=== PATIENT | female | born 1965 | race Caucasian/White ===

== ENCOUNTER 2016-10-24 17:28 | Emergency (ER) | payer SELFPAY ==
[~2016-10-24] VITALS: Ht 177.8 cm; Wt 86.2 kg
[~2016-10-24 17:28] MED LIST: ALBU0.632 IH; ALBU17AE3 IH; AZIT250T PO; CEPH500C PO; CLIN300C3 PO; HYDR-3714 PO; HYDR1TAB66 PO; LACT1CAP45 PO; LEVO500T69 PO; PRD20T PO
--- OUTSIDE RECORDS SUMMARY | 2016-10-24 17:34 | XMS REPORT | Continuity of Care Document ---
Author Author [facility] Organization [facility] Address Unknown Phone Unavailable Allergies Active Description Code Type Severity Reaction Onset Reported/Identified Relationship to Patient Clinical Status Yes amoxicillin [id number] Drug Allergy Unknown N/A 11/16/2010 Medications Problems Date Dx Coded Attending Type Code Diagnosis Diagnosed By 11/17/2010 Ot 276.1 HYPOSMOLALITY 11/17/2010 Ot 276.8 HYPOPOTASSEMIA 11/17/2010 Ot 521.00 UNSPEC DENTAL CARIES 11/17/2010 Ot 522.5 PERIAPICAL ABSCESS 11/09/2013 MARISOL BLANCAS APRN Ot 490 BRONCHITIS NOS 11/09/2013 MARISOL BLANCAS APRN Ot 786.2 COUGH 08/05/2014 MARISOL BALNCAS APRN Ot 521.00 UNSPEC DENTAL CARIES 08/05/2014 MARISOL BLANCAS APRN Ot 525.9 DENTAL DISORDER NOS 03/23/2016 MARISOL BLANCAS APRN Ot K02.9 DENTAL CARIES, UNSPECIFIED 03/23/2016 MARISOL BLANCAS APRN Ot K08.8 OTHER SPECIFIED DISORDERS OF TEETH AND S 04/21/2016 MAIRSOL BLANCAS APRN Ot F17.210 NICOTINE DEPENDENCE, CIGARETTES, UNCOMPL 04/21/2016 MARISOL BLANCAS APRN Ot R06.02 SHORTNESS OF BREATH 04/21/2016 MARISOL BLANCAS APRN Ot R07.81 PLEURODYNIA 04/21/2016 MARISOL BLANCAS APRN Ot R10.13 EPIGASTRIC PAIN Procedures Results Test Result Range Complete blood count (CBC) with automated white blood cell (WBC) differential - 04/19/16 14:22 Blood leukocytes automated count (number/volume) 6.8 10*3/ uL 4.3-11.0 Blood erythrocytes automated count (number/volume) 4.65 10*6 /uL 4.35-5.85 Venous blood hemoglobin measurement (mass/volume) 14.3 g/dL 11.5-16.0 Blood hematocrit (volume fraction) 41 % 35-52 Automated erythrocyte mean corpuscular volume 87 [foz_us] 80-99 Automated erythrocyte mean corpuscular hemoglobin (mass per erythrocyte) 31 pg 25-34 Automated erythrocyte mean corpuscular hemoglobin concentration measurement ( mass/volume) 35 g/dL 32-36 Automated erythrocyte distribution width ratio 14.9 % 10.0-14.5 Automated blood platelet count (count/volume) 210 10*3/uL 130-400 Automated blood platelet mean volume measurement 11.9 [foz_ us] 7.4-10.4 Automated blood neutrophils/100 leukocytes 68 % 42-75 Automated blood lymphocytes/100 leukocytes 20 % 12-44 Blood monocytes/100 leukocytes 10 % 0-12 Automated blood eosinophils/100 leukocytes 2 % 0-10 Automated blood basophils/100 leukocytes 2 % 0-10 Blood neutrophils automated count (number/volume) 4.6 10*3 1.8-7.8 Blood lymphocytes automated count (number/volume) 1.3 10*3 1.0-4.0 Blood monocytes automated count (number/volume) 0.7 10*3 0.0-1.0 Automated eosinophil count 0.1 10*3/uL 0.0-0.3 Automated blood basophil count (count/volume) 0.1 10*3/uL 0.0-0.1 Comprehensive metabolic panel - 04/19/16 14:22 Serum or plasma sodium measurement (moles/volume) 139 mmol/ L 135-145 Serum or plasma potassium measurement (moles/volume) 4.0 mmol/L 3.6-5.0 Serum or plasma chloride measurement (moles/volume) 109 mmol /L 98-107 Carbon dioxide 22 mmol/L 21-32 Serum or plasma anion gap determination (moles/volume) 8 mmol/L 5-14 Serum or plasma urea nitrogen measurement (mass/volume) 14 mg/dL 7-18 Serum or plasma creatinine measurement (mass/volume) 0.81 mg /dL 0.60-1.30 Serum or plasma urea nitrogen/creatinine mass ratio 17 NRG Serum or plasma creatinine measurement with calculation of estimated glomerular filtration rate > NRG Serum or plasma glucose measurement (mass/volume) 100 mg/dL 70-105 Serum or plasma calcium measurement (mass/volume) 8.9 mg/dL 8.5-10.1 Serum or plasma total bilirubin measurement (mass/volume) 0.6 mg/dL 0.1-1.0 Serum or plasma alkaline phosphatase measurement (enzymatic activity/volume) 65 U/L 40-136 Serum or plasma aspartate aminotransferase measurement (enzymatic activity/ volume) 17 U/L 5-34 Serum or plasma alanine aminotransferase measurement (enzymatic activity/volume ) 15 U/L 0-55 Serum or plasma protein measurement (mass/volume) 7.4 g/dL 6.4-8.2 Serum or plasma albumin measurement (mass/volume) 4.2 g/dL 3.2-4.5 Serum or plasma creatine kinase MB measurement (enzymatic activity/volume) - 14:22 Serum or plasma creatine kinase MB measurement (enzymatic activity/volume) 2.5 ng/mL <6.6 Serum or plasma troponin i.cardiac measurement (mass/volume) - 04/19/16 14:22 Serum or plasma troponin i.cardiac measurement (mass/volume) < ng/mL <0.30 Serum or plasma lithium measurement (moles/volume) - 04/19/16 14:22 BNP level 97.1 pg/mL <100.0 Lipase - 04/19/16 14:22 Lipase 22 U/L 8-78 Encounters ACCT No. Visit Date/Time Discharge Status Pt. Type Provider Facility Loc./Unit Complaint [id number] 04/19/2016 14:13:00 2015 16:17:00 DIS Outpatient MARISOL BLANCAS APRN [facility] ER SOA/CHEST PAIN [id number] 03/21/2016 16:23:00 2015 17:38:00 DIS Outpatient MARISOL BLANCAS APRN [facility] ER DENTAL PAIN [id number] 08/05/2014 17:43:00 2013 18:42:00 DIS Emergency MARISOL BLANCAS APRN [facility] ER LEFT DENTAL PAIN [id number] 11/09/2013 10:18:00 2013 11:57:00 DIS Emergency MARISOL BLANCAS APRN [facility] ER CONGESTION SOA [id number] 03/21/2016 16:23:00 Document Registration [id number] 11/16/2010 21:55:00 Document Registration
[2016-10-24] MEDS ORDERED: NS IV 500 ML 500 ML IV ONE (18:12)
[2016-10-24 18:19] LABS: BILIRUBIN,URINE NEGATIVE (NEGATIVE); KETONES,URINE NEGATIVE (NEGATIVE); LEUKOCYTE ESTERASE ,URINE 2+ (NEGATIVE); NITRITE,URINE NEGATIVE (NEGATIVE); PH,URINE 6 (5-9); PROTEIN,URINE NEGATIVE (NEGATIVE); UROBILINOGEN,URINE NORMAL (NORMAL)
--- NOTE | 2016-10-24 18:20 | ED Chest Pain ---
General Chief Complaint: Chest Pain Stated Complaint: BACK PAIN/PAINFUL BREATHING/SOB Nursing Triage Note: AMBULATED TO ROOM 06 WITH COMPLAINTS OF ABD PAIN TODAY THAT SUBSIDED WHEN SHE HAD A BM. NOW COMPLAINS OF CHEST AND BACK PAIN. ALSO COMPLAINS OF PAIN LEFT SIDE OF FACE. Nursing Sepsis Screen: No Definite Risk Source: patient Exam Limitations: no limitations History of Present Illness Time seen by provider: 18:03 Initial Comments here with a variety of vague complaints. States that she's had months of upper abdominal pain that is mostly on the left side and gets better with bowel movements. She's also had a couple weeks of pain that goes from her back to her chest from the area of the mid back to the area near the xiphoid. It is moderate and intermittent and is associated with shortness of breath. That has also been associated with some other variety of complaints of pain including her head and neck. She states that she gets migraine headaches when she gets these pains. denies nausea or vomiting. Denies dysuria or diarrhea. Denies fever or chills. Timing/Duration: getting worse, changing over time, intermittent, other (2 weeks) Severity/Quality: moderate, ingestion, pressure Location: central, epigastric Radiation: neck, back Prior CP/Workup: no prior chest pain ASA po TOOL DESIGN ENGINEER: No NTG SL TOOL DESIGN ENGINEER: No Associated Symptoms: abdominal pain back painNo nausea/vomiting, No rash, shortness of breathNo weakness Allergies and Home Medications Allergies Coded Allergies: Amoxicillin (Unverified Allergy, 11/16/10) Home Medications No Active Prescriptions or Reported Meds Review of Systems Constitutional: see HPINo chills, No fever, malaise EENTM: Nose CongestionNo Throat Pain Respiratory: Denies Cough, Shortness of Air SOA With Exertion Cardiovascular: Chest PainDenies Edema, Denies Irregular Heart Rate Gastrointestinal: Abdominal PainDenies Diarrhea, NauseaDenies Rectal Bleeding , Denies Vomiting Genitourinary: No Symptoms Reported Musculoskeletal: back pain muscle pain Skin: no symptoms reported Psychiatric/Neurological: No Symptoms Reported Endocrine: No Symptoms Reported All Other Systems Reviewed Negative Unless Noted: Yes Past Ehjufjb-Vitnvl-Ywgdii Hx Patient Social History Alcohol Use: Regular Use Recreational Drug Use: Yes (POT) Smoking Status: Current Everyday Smoker Recent Foreign Travel: No Contact w/Someone Who Travel: No Recent Infectious Disease Expo: No Recent Hopitalizations: No Seasonal Allergies Seasonal Allergies: Yes Surgeries HX Surgeries: Yes Surgeries: Section, Orthopedic, Tubal Ligation Respiratory Hx Respiratory Disorders: Yes Respiratory Disorders: Chronic Bronchitis Cardiovascular Hx Cardiac Disorders: No Neurological Hx Neurological Disorders: No Reproductive System Hx Reproductive Disorders: Yes 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 Genitourinary Hx Genitourinary Disorders: No Gastrointestinal Hx Gastrointestinal Disorders: No Musculoskeletal Hx Musculoskeletal Disorders: Yes Musculoskeletal Disorders: Arthritis Endocrine Hx Endocrine Disorders: No HEENT HX ENT Disorders: No Cancer Hx Cancer: No Psychosocial Hx Psychiatric Problems: No Integumentary HX Skin/Integumentary Disorder: No Blood Transfusions Hx Blood Disorders: No Reviewed Nursing Assessment Reviewed/Agree w Nursing PMH: Yes Family Medical History Significant Family History: No Pertinent Family Hx Physical Exam Vital Signs Vital Sign - Last 12Hours 10/24/16 17:43 Temp 98.0 Pulse 78 Resp 16 B/P 131/92 Pulse Ox 94 Capillary Refill : Less Than 3 Seconds General Appearance: No Apparent Distress WD/WN HEENT: PERRL/EOMI Pharynx Normal Neck: Non Tender Supple Respiratory: Lungs Clear Normal Breath Sounds Cardiovascular: Regular Rate, Rhythm No Murmur Gastrointestinal: Soft Tenderness (mid epigastric) Extremity: Normal Capillary Refill Non Tender No Calf Tenderness Neurologic/Psychiatric: Alert Oriented x3 Skin: Normal Color Warm/Dry Focused Exam Lactic Acid Level Laboratory Tests Test 10/24/16 18:19 Alanine Aminotransferase (ALT/SGPT) 13U/L (0-55) Albumin 4.1G/DL (3.2-4.5) Alkaline Phosphatase 65U/L (40-136) Anion Gap 10MMOL/L (5-14) Aspartate Amino Transf (AST/SGOT) 16U/L (5-34) BUN/Creatinine Ratio 11 Blood Urea Nitrogen 8MG/DL (7-18) C-Reactive Protein High Sensitivity 0.45MG/DL (0.00-0.50) Calcium Level 8.7MG/DL (8.5-10.1) Carbon Dioxide Level 22MMOL/L (21-32) Chloride Level 110MMOL/L (98-107) H Creatinine 0.73MG/DL (0.60-1.30) Estimat Glomerular Filtration Rate > 60 Glucose Level 79MG/DL (70-105) Lipase 13U/L (8-78) Magnesium Level 2.3MG/DL (1.8-2.4) Potassium Level 4.0MMOL/L (3.6-5.0) Sodium Level 142MMOL/L (135-145) Thyroid Stimulating Hormone (TSH) 0.76UIU/ML (0.35-4.94) Total Bilirubin 0.5MG/DL (0.1-1.0) Total Protein 7.3G/DL (6.4-8.2) Troponin I < 0.30NG/ML (<0.30) Progress/Results/Core Measures Results/Orders Lab Results Laboratory Tests Test 10/24/16 18:13 10/24/16 18:19 Range/Units Urine Bacteria NEGATIVE /HPF Urine Bilirubin NEGATIVE NEGATIVE Urine Casts NONE /LPF Urine Clarity CLEAR Urine Color YELLOW Urine Crystals NONE /LPF Urine Culture Indicated YES Urine Glucose (UA) NEGATIVE NEGATIVE Urine Ketones NEGATIVE NEGATIVE Urine Leukocyte Esterase 2+ H NEGATIVE Urine Mucus NEGATIVE /LPF Urine Nitrite NEGATIVE NEGATIVE Urine Protein NEGATIVE NEGATIVE Urine RBC NONE /HPF Urine RBC (Auto) NEGATIVE NEGATIVE Urine Specific [place] 1.005 L 1.016-1.022 Urine Squamous Epithelial Cells 2-5 /HPF Urine Urobilinogen NORMAL NORMAL MG/DL Urine WBC 10-25 H /HPF Urine pH 6 5-9 Alanine Aminotransferase (ALT/SGPT) 13 0-55 U/L Albumin 4.1 3.2-4.5 G/DL Alkaline Phosphatase 65 40-136 U/L Anion Gap 10 5-14 MMOL/L Aspartate Amino Transf (AST/SGOT) 16 5-34 U/L BUN/Creatinine Ratio 11 Basophils # (Auto) 0.1 0.0-0.1 10^3/uL Basophils (%) (Auto) 2 0-10 % Blood Urea Nitrogen 8 7-18 MG/DL C-Reactive Protein High Sensitivity 0.45 0.00-0.50 MG/DL Calcium Level 8.7 8.5-10.1 MG/DL Carbon Dioxide Level 22 21-32 MMOL/L Chloride Level 110 H 98-107 MMOL/L Creatinine 0.73 0.60-1.30 MG/DL D-Dimer 0.39 0.00-0.49 UG/ML Eosinophils # (Auto) 0.1 0.0-0.3 10^3/uL Eosinophils (%) (Auto) 1 0-10 % Estimat Glomerular Filtration Rate > 60 Glucose Level 79 70-105 MG/DL Hematocrit 41 35-52 % Hemoglobin 14.0 11.5-16.0 G/DL Lipase 13 8-78 U/L Lymphocytes # (Auto) 1.4 1.0-4.0 X 10^3 Lymphocytes (%) (Auto) 22 12-44 % Magnesium Level 2.3 1.8-2.4 MG/DL Mean Corpuscular Hemoglobin 31 25-34 PG Mean Corpuscular Hemoglobin Concent 35 32-36 G/DL Mean Corpuscular Volume 89 80-99 FL Mean Platelet Volume 11.7 H 7.4-10.4 FL Monocytes # (Auto) 0.6 0.0-1.0 X 10^3 Monocytes (%) (Auto) 9 0-12 % Neutrophils # (Auto) 4.2 1.8-7.8 X 10^3 Neutrophils (%) (Auto) 66 42-75 % Platelet Count 230 130-400 10^3/uL Potassium Level 4.0 3.6-5.0 MMOL/L Red Blood Count 4.55 4.35-5.85 10^6/uL Red Cell Distribution Width 14.1 10.0-14.5 % Sodium Level 142 135-145 MMOL/L Thyroid Stimulating Hormone (TSH) 0.76 0.35-4.94 UIU/ML Total Bilirubin 0.5 0.1-1.0 MG/DL Total Protein 7.3 6.4-8.2 G/DL Troponin I < 0.30 <0.30 NG/ML White Blood Count 6.3 4.3-11.0 10^3/uL My Orders Orders-CARMEN FIORE MD Cbc With Automated Diff (10/24/16 18:12) Comprehensive Metabolic Panel (10/24/16 18:12) Hs C Reactive Protein (10/24/16 18:12) Fibrin Degradation Products (10/24/16 18:12) Lipase (10/24/16 18:12) Magnesium (10/24/16 18:12) Thyroid Stimulating Hormone (10/24/16 18:12) Troponin I (10/24/16 18:12) Ua Culture If Indicated (10/24/16 18:12) Saline Lock/Iv-Start (10/24/16 18:12) Ekg Tracing (10/24/16 18:12) Monitor-Rhythm Ecg Trace Only (10/24/16 18:12) Chest Pa/Lat (2 View) (10/24/16 18:12) Saline Lock/Iv-Start (10/24/16 18:12) Ns Iv 500 Ml (Sodium Chloride 0.9%) (10/24/16 18:12) Urine Culture (10/24/16 18:13) Medications Given in ED Current Medications Medications Dose Ordered Sig/Shanae Route Start Time Stop Time Status Last Admin Dose Admin Sodium Chloride 500 ml @ 0 mls/hr Q0M ONCE IV 10/24/16 18:12 10/24/16 18:16 DC 10/24/16 18:23 500 MLS/HR Vital Signs/I&O Vital Sign - Last 12Hours 10/24/16 17:43 Temp 98.0 Pulse 78 Resp 16 B/P 131/92 Pulse Ox 94 Blood Pressure Mean: 105 Progress Note : Progress Note seen and evaluated. IV, labs, EKG and chest x-ray ordered. I will hold on aspirin at this point as this could be abdominal gastritis related to alcohol but will consider it as needed depending on evaluation. Patient currently denies chest pain. Monitor patient. 194: Essentially negative evaluation. Patient does have urinary tract infection and I do believe she has bronchitis from long-term smoking. She does have challenges with paying for meds. We will give Levaquin 500 mg by mouth as well as Decadron 10 mg IV and send her home with a go pack of albuterol MDI. She will get prescription of Cipro outpatient for the urinary tract infection. Discharged home with return precautions. Patient verbalize understanding instructions and agreement with plan. She has asked for written prescription so that she can check different pharmacies for pricing. ECG Initial ECG Impression Date: Oct 24, 2016 Initial ECG Impression Time: 17:49 Initial ECG Rate: 73 Initial ECG Rhythm: Normal Sinus Comment sinus rhythm with normal axis. Left atrial abnormality. No evidence of this elevation [place]. Unchanged from previous. Interpreted by me. Diagnostic Imaging Diagonstic Imaging: Xray Plain Films/CT/US/NM/MRI: chest Comments NAME: AJ GLOVER MED REC#: [id number] PT STATUS: REG ER : 1965 PHYSICIAN: CARMEN FIORE MD ADMIT DATE: 10/24/16/ER Signed Date of Exam: 10/24/16 CHEST PA/LAT (2 VIEW) INDICATION: Chest pain and back pain. COMPARISON: 04/19/2016 FINDINGS: Two views of the chest are obtained. Heart size is normal. The pulmonary vessels appear unremarkable. There is no pneumothorax, mediastinal widening or pleural fluid demonstrated. The lungs are clear. The osseous structures appear unremarkable. IMPRESSION: Negative chest. Dictated by: Dictated on workstation # [id number] Dict: 10/24/16 1846 Trans: 10/24/16 185 [facility] [id number] Interpreted by: ARI KIMBROUGH DO Electronically signed by:ARI KIMBROUGH DO 10/24/168 Departure Impression Impression: Primary Impression: Urinary tract infection Qualified Code: N30.00 - Acute cystitis without hematuria Additional Impression: Bronchitis Disposition: 01 HOME, SELF-CARE Condition: Improved Departure-Patient Inst. Decision time for Depature: 19:42 Referrals: NO,LOCAL PHYSICIAN (PCP/Family) Primary Care Physician Patient Instructions: Acute Bronchitis, Adult (DC), Urinary Tract Infection, Adult (DC) Add. Discharge Instructions: All discharge instructions reviewed with patient and/or family. Voiced understanding. Drink plenty of fluids. Take medications as directed. You may use ibuprofen or Tylenol as needed for fever or pain. Return for worsening, fever, vomiting, weakness, breathing problems or other concerns as needed. Scripts Ciprofloxacin HCl 500 Mg [id number] Mg PO BID #6 TAB Prov:CARMEN FIORE MD 10/24/16 CARMEN FIORE MD Oct 24, 2016 18:19
[2016-10-24 18:25] LABS: BASOPHILS # (AUTO) 0.1 10^3/uL (0.0-0.1); BASOPHILS % (AUTO) 2 % (0-10); EOSINOPHILS # (AUTO) 0.1 10^3/uL (0.0-0.3); EOSINOPHILS % (AUTO) 1 % (0-10); LYMPHOCYTES # (AUTO) 1.4 X 10^3 (1.0-4.0); LYMPHOCYTES % (AUTO) 22 % (12-44); MEAN CORPUSCULAR HEMOGLOBIN 31 PG (25-34); MEAN CORPUSCULAR HGB CONC 35 G/DL (32-36); MEAN CORPUSCULAR VOLUME 89 FL (80-99); MEAN PLATELET VOLUME 11.7 FL (7.4-10.4); MONOCYTES # (AUTO) 0.6 X 10^3 (0.0-1.0); MONOCYTES % (AUTO) 9 % (0-12); NEUTROPHILS # (AUTO) 4.2 X 10^3 (1.8-7.8); NEUTROPHILS % (AUTO) 66 % (42-75); PLATELET COUNT 230 10^3/uL (130-400); RED BLOOD COUNT 4.55 10^6/uL (4.35-5.85); RED CELL DISTRIBUTION WIDTH 14.1 % (10.0-14.5); WHITE BLOOD COUNT 6.3 10^3/uL (4.3-11.0)
[2016-10-24 18:46] LABS: ALANINE AMINOTRANSFERASE 13 U/L (0-55); ALBUMIN 4.1 G/DL (3.2-4.5); ANION GAP 10 MMOL/L (5-14); ASPARTATE AMINO TRANSFERASE 16 U/L (5-34); BILIRUBIN,TOTAL 0.5 MG/DL (0.1-1.0); BLOOD UREA NITROGEN 8 MG/DL (7-18); BUN/CREATININE RATIO 11; CALCIUM 8.7 MG/DL (8.5-10.1); CARBON DIOXIDE 22 MMOL/L (21-32); CHLORIDE 110 MMOL/L (98-107); CREATININE SERUM 0.73 MG/DL (0.60-1.30); GFR ESTIMATED > 60; GLUCOSE 79 MG/DL (70-105); LIPASE 13 U/L (8-78); MAGNESIUM 2.3 MG/DL (1.8-2.4); SODIUM 142 MMOL/L (135-145); TOTAL PROTEIN 7.3 G/DL (6.4-8.2); hs C REACTIVE PROTEIN 0.45 MG/DL (0.00-0.50)
--- NOTE | 2016-10-24 18:52 | Diagnostic Imaging Report ---
INDICATION: Chest pain and back pain. COMPARISON: 04/19/2016 FINDINGS: Two views of the chest are obtained. Heart size is normal. The pulmonary vessels appear unremarkable. There is no pneumothorax, mediastinal widening or pleural fluid demonstrated. The lungs are clear. The osseous structures appear unremarkable. IMPRESSION: Negative chest. Dictated by: Dictated on workstation # [id number]
[2016-10-24 19:06] LABS: THYROID STIMULATING HORMONE 0.76 UIU/ML (0.35-4.94); TROPONIN I < 0.30 NG/ML (<0.30)
[2016-10-24] MEDS ORDERED: DEXAMETHASONE PF 10 MG/ML (DECADRON) VIAL IV STA (19:39)
[2016-10-24] MEDS ORDERED: LEVOFLOXACIN 500 MG TAB (LEVAQUIN) PO STA (19:39)
[2016-10-24] MEDS ORDERED: CIPR500T4 PO (19:44)
[2016-10-24] MEDS ORDERED: RX-ALBUTEROL INHALER (PROAIR) 8 GM IH PRN (19:45)
[2016-10-24 20:00] VITALS: BP 130/82
== END 2016-10-24 20:00 | disposition home or self-care (01) ==
LOC: EDUNIT# 17:28 → ER 17:30
DX: J20.9 Acute bronchitis, unspecified (principal); N39.0 Urinary tract infection, site not specified; K29.70 Gastritis, unspecified, without bleeding; F17.210 Nicotine dependence, cigarettes, uncomplicated
CPT/HCPCS: 36415; 71020; 80053; 81000; 83690; 83735; 84443; 84484; 85025; 85379; 86141; 87088; 93005; 93041; 96361; 96374

== ENCOUNTER 2017-11-06 00:44 | Emergency (ER) | payer SELFPAY ==
[~2017-11-06] VITALS: Ht 177.8 cm; Wt 86.2 kg
[~2017-11-06 00:44] MED LIST changes: +CIPR500T4 PO
--- OUTSIDE RECORDS SUMMARY | 2017-11-06 00:49 | XMS REPORT ---
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
--- OUTSIDE RECORDS SUMMARY | 2017-11-06 00:49 | XMS REPORT | Continuity of Care Document ---
Author Author [facility] Organization [facility] Address Unknown Phone Unavailable Allergies Active Description Code Type Severity Reaction Onset Reported/Identified Relationship to Patient Clinical Status Yes amoxicillin [id number] Drug Allergy Unknown N/A 11/16/2010 Medications There is no data. Problems Date Dx Coded Attending Type Code Diagnosis Diagnosed By 11/17/2010 Ot 276.1 HYPOSMOLALITY 11/17/2010 Ot 276.8 HYPOPOTASSEMIA 11/17/2010 Ot 521.00 UNSPEC DENTAL CARIES 11/17/2010 Ot 522.5 PERIAPICAL ABSCESS 11/09/2013 MARISOL BLANCAS APRN Ot 490 BRONCHITIS NOS 11/09/2013 MARISOL BLANCAS APRN Ot 786.2 COUGH 08/05/2014 MARISOL BLANCAS APRN Ot 521.00 UNSPEC DENTAL CARIES 08/05/2014 MARISOL BLANCAS APRN Ot 525.9 DENTAL DISORDER NOS 03/21/2016 MARISOL BLANCAS APRN Ot K02.9 DENTAL CARIES, UNSPECIFIED 03/21/2016 MARISOL BLANCAS APRN Ot K08.8 OTHER SPECIFIED DISORDERS OF TEETH AND S 03/23/2016 MARISOL BLANCAS APRN Ot K02.9 DENTAL CARIES, UNSPECIFIED 03/23/2016 MARISOL BLANCAS APRN Ot K08.8 OTHER SPECIFIED DISORDERS OF TEETH AND S 04/19/2016 MARISOL BLANCAS APRN Ot F17.210 NICOTINE DEPENDENCE, CIGARETTES, UNCOMPL 04/19/2016 MARISOL BLANCAS APRN Ot R06.02 SHORTNESS OF BREATH 04/19/2016 MARISOL BLANCAS APRN Ot R07.81 PLEURODYNIA 04/19/2016 MARISOL BLANCAS APRN Ot R10.13 EPIGASTRIC PAIN 04/21/2016 MARISOL BLANCAS APRN Ot F17.210 NICOTINE DEPENDENCE, CIGARETTES, UNCOMPL 04/21/2016 MARISOL BLANCAS APRN Ot R06.02 SHORTNESS OF BREATH 04/21/2016 BLANCAS, PETER J SEED TESTER Ot R07.81 PLEURODYNIA 04/21/2016 MARISOL BLANCAS SEED TESTER Ot R10.13 EPIGASTRIC PAIN 10/24/2016 CARMEN FIORE MD Ot F17.210 NICOTINE DEPENDENCE, CIGARETTES, UNCOMPL 10/24/2016 CARMEN FIORE MD Ot J20.9 ACUTE BRONCHITIS, UNSPECIFIED 10/24/2016 CARMEN FIORE MD Ot K29.70 GASTRITIS, UNSPECIFIED, WITHOUT BLEEDING 10/24/2016 CARMEN FIORE MD Ot N39.0 URINARY TRACT INFECTION, SITE NOT SPECIF 10/24/2016 CARMEN FIORE MD Ot R10.13 EPIGASTRIC PAIN 10/26/2016 CARMEN FIORE MD Ot F17.210 NICOTINE DEPENDENCE, CIGARETTES, UNCOMPL 10/26/2016 CARMEN FIORE MD Ot J20.9 ACUTE BRONCHITIS, UNSPECIFIED 10/26/2016 CARMEN FIORE MD Ot K29.70 GASTRITIS, UNSPECIFIED, WITHOUT BLEEDING 10/26/2016 CARMEN FIORE MD Ot N39.0 URINARY TRACT INFECTION, SITE NOT SPECIF 10/26/2016 CARMEN FIORE MD Ot R10.13 EPIGASTRIC PAIN 10/30/2016 CARMEN FIORE MD Ot F17.210 NICOTINE DEPENDENCE, CIGARETTES, UNCOMPL 10/30/2016 CARMEN FIORE MD Ot J20.9 ACUTE BRONCHITIS, UNSPECIFIED 10/30/2016 CARMEN FIORE MD Ot K29.70 GASTRITIS, UNSPECIFIED, WITHOUT BLEEDING 10/30/2016 CARMEN FIORE MD Ot N39.0 URINARY TRACT INFECTION, SITE NOT SPECIF 10/30/2016 CARMEN FIORE MD Ot R10.13 EPIGASTRIC PAIN Procedures There is no data. Results Test Result Range Complete blood count (CBC) with automated white blood cell (WBC) differential - 04/19/16 14:22 Blood leukocytes automated count (number/volume) 6.8 10*3/uL 4.3-11.0 Blood erythrocytes automated count (number/volume) 4.65 10*6/uL 4.35-5.85 Venous blood hemoglobin measurement (mass/volume) 14.3 [...] Automated blood platelet mean volume measurement 11.9 [foz_us] 7.4-10.4 Automated blood neutrophils/100 leukocytes 68 % [...] Serum or plasma sodium measurement (moles/volume) 139 mmol/L 135-145 Serum or plasma potassium measurement (moles/volume) 4.0 mmol/L 3.6-5.0 Serum or plasma chloride measurement (moles/volume) 109 mmol/L 98-107 Carbon dioxide 22 mmol/L 21-32 Serum or plasma anion gap determination (moles/volume) 8 mmol/L 5-14 Serum or plasma urea nitrogen measurement (mass/volume) 14 mg/dL 7-18 Serum or plasma creatinine measurement (mass/volume) 0.81 mg/dL 0.60-1.30 Serum or plasma urea nitrogen/creatinine mass [...] or plasma troponin i.cardiac measurement (mass/volume) < ng/ mL <0.30 Serum or plasma lithium measurement (moles/volume) - 04/19/16 14:22 BNP level 97.1 pg/mL <100.0 Lipase - 04/19/16 14:22 Lipase 22 U/L 8-78 Complete urinalysis with reflex to culture - 10/24/16 18:13 Urine color determination YELLOW NRG Urine clarity determination CLEAR NRG Urine pH measurement by test strip 6 5-9 Specific gravity of urine by test strip 1.005 1.016- 1.022 Urine protein assay by test strip, semi-quantitative NEGATIVE NEGATIVE Urine glucose detection by automated test strip NEGATIVE NEGATIVE Erythrocytes detection in urine sediment by light microscopy NEGATIVE NEGATIVE Urine ketones detection by automated test strip NEGATIVE NEGATIVE Urine nitrite detection by test strip NEGATIVE NEGATIVE Urine total bilirubin detection by test strip NEGATIVE NEGATIVE Urine urobilinogen measurement by automated test strip (mass/volume) NORMAL NORMAL Urine leukocyte esterase detection by dipstick 2+ NEGATIVE Automated urine sediment erythrocyte count by microscopy (number/high power field) NONE NRG Automated urine sediment leukocyte count by microscopy (number/high power field ) [HPF] NRG Bacteria detection in urine sediment by light microscopy NEGATIVE NRG Squamous epithelial cells detection in urine sediment by light microscopy 2-5 NRG Crystals detection in urine sediment by light microscopy NONE NRG Casts detection in urine sediment by light microscopy NONE NRG Mucus detection in urine sediment by light microscopy NEGATIVE NRG Complete urinalysis with reflex to culture YES NRG Bacterial urine culture - 10/24/16 18:13 Bacterial urine culture [facility] Complete blood count (CBC) with automated white blood cell (WBC) differential - 10/24/16 18:19 Blood leukocytes automated count (number/volume) 6.3 10*3/uL 4.3-11.0 Blood erythrocytes automated count (number/volume) 4.55 10*6/uL 4.35-5.85 Venous blood hemoglobin measurement (mass/volume) 14.0 g/dL 11.5-16.0 Blood hematocrit (volume fraction) 41 % 35-52 Automated erythrocyte mean corpuscular volume 89 [foz_us] 80-99 Automated erythrocyte mean corpuscular hemoglobin (mass per erythrocyte) 31 pg 25-34 Automated erythrocyte mean corpuscular hemoglobin concentration measurement ( mass/volume) 35 g/dL 32-36 Automated erythrocyte distribution width ratio 14.1 % 10.0-14.5 Automated blood platelet count (count/volume) 230 10*3/uL 130-400 Automated blood platelet mean volume measurement 11.7 [foz_us] 7.4-10.4 Automated blood neutrophils/100 leukocytes 66 % 42-75 Automated blood lymphocytes/100 leukocytes 22 % 12-44 Blood monocytes/100 leukocytes 9 % 0-12 Automated blood eosinophils/100 leukocytes 1 % 0-10 Automated blood basophils/100 leukocytes 2 % 0-10 Blood neutrophils automated count (number/volume) 4.2 10*3 1.8-7.8 Blood lymphocytes automated count (number/volume) 1.4 10*3 1.0-4.0 Blood monocytes automated count (number/volume) 0.6 10*3 0.0-1.0 Automated eosinophil count 0.1 10*3/uL 0.0-0.3 Automated blood basophil count (count/volume) 0.1 10*3/uL 0.0-0.1 Fibrin D-dimer FEU measurement in platelet poor plasma (mass/volume) - 18:19 Fibrin D-dimer FEU measurement in platelet poor plasma (mass/volume) 0.39 ug/mL 0.00-0.49 Comprehensive metabolic panel - 10/24/16 18:19 Serum or plasma sodium measurement (moles/volume) 142 mmol/L 135-145 Serum or plasma potassium measurement (moles/volume) 4.0 mmol/L 3.6-5.0 Serum or plasma chloride measurement (moles/volume) 110 mmol/L 98-107 Carbon dioxide 22 mmol/L 21-32 Serum or plasma anion gap determination (moles/volume) 10 mmol/L 5-14 Serum or plasma urea nitrogen measurement (mass/volume) 8 mg/dL 7-18 Serum or plasma creatinine measurement (mass/volume) 0.73 mg/dL 0.60-1.30 Serum or plasma urea nitrogen/creatinine mass ratio 11 NRG Serum or plasma creatinine measurement with calculation of estimated glomerular filtration rate > NRG Serum or plasma glucose measurement (mass/volume) 79 mg/dL 70-105 Serum or plasma calcium measurement (mass/volume) 8.7 mg/dL 8.5-10.1 Serum or plasma total bilirubin measurement (mass/volume) 0.5 mg/dL 0.1-1.0 Serum or plasma alkaline phosphatase measurement (enzymatic activity/volume) 65 U/L 40-136 Serum or plasma aspartate aminotransferase measurement (enzymatic activity/ volume) 16 U/L 5-34 Serum or plasma alanine aminotransferase measurement (enzymatic activity/volume ) 13 U/L 0-55 Serum or plasma protein measurement (mass/volume) 7.3 g/dL 6.4-8.2 Serum or plasma albumin measurement (mass/volume) 4.1 g/dL 3.2-4.5 Magnesium - 10/24/16 18:19 Magnesium 2.3 mg/dL 1.8-2.4 Serum or plasma troponin i.cardiac measurement (mass/volume) - 10/24/16 18:19 Serum or plasma troponin i.cardiac measurement (mass/volume) < ng/ mL <0.30 Lipase - 10/24/16 18:19 Lipase 13 U/L 8-78 THYROID STIMULATING HORMONE - 10/24/16 18:19 THYROID STIMULATING HORMONE 0.76 u[iU]/mL 0.35-4.94 Serum or plasma C reactive protein measurement (mass/volume) - 10/24/16 18:19 Serum or plasma C reactive protein measurement (mass/volume) 0.45 mg /dL 0.00-0.50 Encounters ACCT No. Visit Date/Time Discharge Status Pt. Type Provider Facility Loc./Unit Complaint [id number] 10/24/2016 17:30:00 10/24/2016 20:00:00 DIS Emergency MACARENA JONES, CARMEN Villarreal [facility] ER BACK PAIN/PAINFUL BREATHING/SOB [id number] 04/19/2016 14:13:00 04/19/2016 16:17:00 DIS Emergency MARISOL BLANCAS APRN [facility] ER SOA/CHEST PAIN [id number] 03/21/2016 16:23:00 03/21/2016 17:38:00 DIS Emergency MARISOL BLANCAS APRN [facility] ER DENTAL PAIN [id number] 08/05/2014 17:43:00 08/05/2014 18:42:00 DIS Emergency MARISOL BLANCAS APRN [facility] ER LEFT DENTAL PAIN [id number] 11/09/2013 10:18:00 11/09/2013 11:57:00 DIS Emergency MARISOL BLANCAS APRN [facility] ER CONGESTION SOA [id number] 03/21/2016 16:23:00 Document Registration [id number] 11/16/2010 21:55:00 Document Registration
[2017-11-06] MEDS ORDERED: KETOROLAC 30 MG/ML VIAL IM ONE (01:30)
--- NOTE | 2017-11-06 01:44 | ED Fall/Injury ---
General Chief Complaint: Trauma-Non Activation Stated Complaint: FALL IN SHOWER Nursing Triage Note: left chest wall pain s/p fall into tub. denies other injuries. Source: patient Exam Limitations: no limitations History of Present Illness Date Seen by Provider: Nov 06, 2017 Time Seen by Provider: 01:37 Initial Comments Patient presents to the ER with her significant other with a chief complaint that she was taking a shower with him tonight and fell against her left mid axillary ribs against the rim of the bathtub. She does not have any other recent trauma to her chest wall. She does not have a history of COPD or asthma. She is only hurting under her ribs on deep inspiration or when some a presses on them. She is not having a cough nor hemoptysis. No nausea vomiting or diarrhea. Location Injury Occurred: home Allergies and Home Medications Allergies Coded Allergies: Amoxicillin (Unverified Allergy, 11/16/10) Home Medications No Active Prescriptions or Reported Meds Patient Home Medication List Home Medication List Reviewed: Yes Constitutional: No chills, No diaphoresis Eyes: Denies Blindness, Denies Drainage Ears, Nose, Mouth, Throat: denies ear pain, denies ear discharge Respiratory: see HPI, No cough, No short of breath, No wheezing Cardiovascular: see HPI, No edema, No Hx of Intervention, No palpitations Gastrointestinal: No abdominal pain, No constipation, No diarrhea, No nausea, No vomiting Genitourinary: No dysuria, No frequency Past Lbjnnyk-Yleeso-Wwhvut Hx Patient Social History Alcohol Use: Regular Use Number of Drinks Today: 6 Alcohol Beverage of Choice: Beer Recreational Drug Use: No Smoking Status: Current Everyday Smoker Type Used: Cigarettes 2nd Hand Smoke Exposure: Yes Recent Foreign Travel: No Contact w/Someone Who Travel: No Recent Infectious Disease Expo: No Recent Hopitalizations: No Seasonal Allergies Seasonal Allergies: Yes Surgeries History of Surgeries: Yes Surgeries: Section, Orthopedic, Tubal Ligation Respiratory History of Respiratory Disorde: Yes Respiratory Disorders: Chronic Bronchitis Cardiovascular History of Cardiac Disorders: No Neurological History of Neurological Disord: No Reproductive System : No Hx Reproductive Disorders: Yes 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, 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 Genitourinary History of Genitourinary Disor: No Gastrointestinal History of Gastrointestinal Di: No Musculoskeletal History of Musculoskeletal Dis: Yes Musculoskeletal Disorders: Arthritis Endocrine History of Endocrine Disorders: No HEENT History of HEENT Disorders: No Cancer History of Cancer: No Psychosocial History of Psychiatric Problem: No Integumentary History of Skin or Integumenta: No Blood Transfusions History of Blood Disorders: No Family Medical History Significant Family History: No Pertinent Family Hx Physical Exam Vital Signs Vital Signs - First Documented 11/06/17 01:18 Temp 97.2 Pulse 71 Resp 22 B/P (MAP) 141/82 (101) Pulse Ox 100 O2 Delivery Room Air Capillary Refill : Less Than 3 Seconds General Appearance: WD/WN, mild distress HEENT: PERRL/EOMI, pharynx normal Neck: non-tender, supple, normal inspection Cardiovascular: normal peripheral pulses, regular rate, rhythm Respiratory: lungs clear, normal breath sounds, no respiratory distress, no accessory muscle use, other (able to take deep breaths. Pain in the midaxillary level of ribs 10 through 12. No bruising noted.) Gastrointestinal: normal bowel sounds, non tender, soft Progress/Results/Core Measures Results/Orders My Orders Orders - KRISSY CASAS Ribs/Unilateral With Chest (11/06/17 01:21) Ketorolac Injection (Toradol Injection) (11/06/17 01:30) Medications Given in ED Current Medications Medications Dose Ordered Sig/Shanae Route Start Time Stop Time Status Last Admin Dose Admin Ketorolac Tromethamine 30 mg ONCE ONCE IM 11/06/17 01:30 11/06/17 01:31 DC 11/06/17 01:35 30 MG Vital Signs/I&O Vital Sign - Last 12Hours 11/06/17 01:18 Temp 97.2 Pulse 71 Resp 22 B/P (MAP) 141/82 (101) Pulse Ox 100 O2 Delivery Room Air Blood Pressure Mean: 101 Progress Note : Time: 01:39 Progress Note 2 rib fractures. Nondisplaced. Diagnostic Imaging Diagonstic Imaging: Xray Plain Films/CT/US/NM/MRI: other (ribs L) Comments Left side 2 rib fractures 8 and 9. Nondisplaced. Reviewed: Reviewed by Me Departure Impression Impression: Primary Impression: Fall in bathtub Qualified Codes: W18.2XXA - Fall in (into) shower or empty bathtub, initial encounter Additional Impression: Left rib fracture Qualified Codes: S22.42XA - Multiple fractures of ribs, left side, initial encounter for closed fracture Disposition: 01 HOME, SELF-CARE Condition: Stable Departure-Patient Inst. Decision time for Depature: 01:42 Referrals: NO,LOCAL PHYSICIAN (PCP/Family) Primary Care Physician Add. Discharge Instructions: Follow-up in the next 1-2 weeks with her primary care physician for further management of pain. If you're having pain in the ribs you can use an ice pack for 20 minutes every 2 hours as needed for the first 3 days. You can also use a heating pad after that. For your pain should also use ibuprofen 800 mg every 8 hours as needed and Tylenol 1000 mg every 8 hours as needed. If you have breakthrough pain it makes too hard to get around you can use the hydrocodone one tablet every 6 hours however this will cause drowsiness and constipation. Continue to take deep breaths every hour throughout the day while you're awake to fill up your lungs. Return to care sooner if you begin to have fevers, productive cough, nausea or other worrisome symptoms. All discharge instructions reviewed with patient and/or family. Voiced understanding. Scripts Hydrocodone Bit/Acetaminophen (Hydrocodone/Acetaminophen 5/325mg Tablet) 1 Tab Tab 1-2 EACH PO Q6H Y for BREAKTHROUGH PAIN, #15 TAB 0 Refills Prov: KRISSY CASAS 11/06/17 Work/School Note: Work Release Form Date Seen in the Emergency Department: Nov 06, 2017 Return to Work: Nov 07, 2017 Restrictions: No Restrictions KRISSY CASAS Nov 06, 2017 01:44
[2017-11-06] MEDS ORDERED: ACHD5005 PO (01:45)
[2017-11-06 02:03] VITALS: BP 141/82
--- NOTE | 2017-11-06 07:13 | Diagnostic Imaging Report ---
INDICATION: Left chest wall pain after fall. COMPARISON: Chest radiograph of 10/24/2016. TECHNIQUE: PA chest with 3 views of the left ribs. FINDINGS and IMPRESSION: 1. No pneumothorax, pleural effusion or pulmonic laceration. 2. No acute displaced left-sided rib fractures. Dictated by: Dictated on workstation # [id number]
== END 2017-11-06 01:58 | disposition home or self-care (01) ==
LOC: EDUNIT# 00:44 → ER 00:46
DX: S22.42XA Multiple fractures of ribs, left side, initial encounter for closed fracture (principal); F17.210 Nicotine dependence, cigarettes, uncomplicated; Z87.59 Personal history of other complications of pregnancy, childbirth and the puerperium; Z98.51 Tubal ligation status; Z88.0 Allergy status to penicillin; W01.198A Fall on same level from slipping, tripping and stumbling with subsequent striking against other object, initial encounter; Y92.002 Bathroom of unspecified non-institutional (private) residence as the place of occurrence of the external cause
CPT/HCPCS: 71101; 96372

== ENCOUNTER 2018-02-09 01:09 | Emergency (ER) | payer SELFPAY ==
[~2018-02-09] VITALS: Ht 172.7 cm; Wt 86.2 kg
[~2018-02-09 01:09] MED LIST changes: +ACHD5005 PO
[2018-02-09] MEDS ORDERED: HYDR50CA PO (01:39)
[2018-02-09] MEDS ORDERED: MOME15CR17 TP (01:39)
[2018-02-09] MEDS ORDERED: METH4TAB PO (01:39)
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
[2018-02-09 01:45] VITALS: BP 109/67
[2018-02-09] MEDS ORDERED: diphenhydrAMINE 50 MG/ML INJ (BENADRYL) IM ONE (01:45)
[2018-02-09] MEDS ORDERED: methylPREDNISolone 125 MG (Solu-MEDROL) VIAL IM ONE (01:45)
== END 2018-02-09 01:45 | disposition home or self-care (01) ==
LOC: EDUNIT# 01:09 → ER 01:13
DX: S70.362A Insect bite (nonvenomous), left thigh, initial encounter (principal); S70.361A Insect bite (nonvenomous), right thigh, initial encounter; S30.861A Insect bite (nonvenomous) of abdominal wall, initial encounter; S30.860A Insect bite (nonvenomous) of lower back and pelvis, initial encounter; L29.9 Pruritus, unspecified; F12.10 Cannabis abuse, uncomplicated; F15.10 Other stimulant abuse, uncomplicated; F14.10 Cocaine abuse, uncomplicated; F17.210 Nicotine dependence, cigarettes, uncomplicated; Z98.51 Tubal ligation status; Z87.59 Personal history of other complications of pregnancy, childbirth and the puerperium; Z88.0 Allergy status to penicillin; Z79.52 Long term (current) use of systemic steroids; W57.XXXA Bitten or stung by nonvenomous insect and other nonvenomous arthropods, initial encounter
CPT/HCPCS: 96372; 99284

== ENCOUNTER 2020-10-22 23:31 | Emergency (ER) | payer OTHER ==
[~2020-10-22] VITALS: Ht 175.3 cm; Wt 86.4 kg
[~2020-10-22 23:31] MED LIST changes: -CIPR500T4 PO; +CIPR500T5 PO; +HYDR50CA PO; +METH4TAB PO; +MOME15CR8 TP
[2020-10-23] MEDS ORDERED: HYDROcodone/APAP 5 MG/325 MG (LORTAB) TAB PO ONE (00:45)
--- NOTE | 2020-10-23 00:51 | ED Fall/Injury ---
General Chief Complaint: Lower Extremity Stated Complaint: R FOOT/HAND PAIN FELL Nursing Triage Note: ASSISTED PT VIA ED WC TO ROOM #5 WITH C/O R ANKLE INJURY ET R HAND INJURY. 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 DENIES HITTING HEAD. SUPERFICIAL ABRASION WITH MILD SWELLING NOTED TO R HAND. MILD SWELLING NOTED TO R LATERAL ANKLE. Source: patient Exam Limitations: no limitations History of Present Illness Date Seen by Provider: Oct 22, 2020 Time Seen by Provider: 23:40 Initial Comments This 54-year-old woman presents to the emergency room with a right hand and right ankle injury. Tonight she tripped on a rug in her home and rolled her ankle. In the process she fell toward the dresser and struck her hand. She denies any head or neck injury. There is swelling and ecchymosis on the dorsum of the hand. There is swelling and tenderness on the lateral aspect of the right ankle. She has prior history of ankle injuries with some degree of chronic discomfort. Allergies and Home Medications Allergies Coded Allergies: amoxicillin (Unverified Allergy, Unknown, 10/23/20) Home Medications Hydrocodone Bit/Acetaminophen 1 Tab Tab, 1-2 EACH PO Q6H PRN for BREAKTHROUGH PAIN Prescribed by: KRISSY CASAS on 11/06/17 014 Hydroxyzine Pamoate 50 Mg Capsule, 50 MG PO Q6H Prescribed by: AJ ESCOBAR on 02/09/18138 Methylprednisolone 4 Mg Tab.ds.pk, 4 MG PO UD Prescribed by: AJ ESCOBAR on 02/09/18138 Mometasone Furoate 15 Gm Cream..g., 0 TP TID Prescribed by: AJ ESCOBAR on 02/09/18138 Patient Home Medication List Home Medication List Reviewed: Yes Review of Systems Review of Systems Constitutional: no symptoms reported Eyes: No Symptoms Reported Ears, Nose, Mouth, Throat: no symptoms reported Respiratory: no symptoms reported Cardiovascular: no symptoms reported Gastrointestinal: no symptoms reported Genitourinary: no symptoms reported Musculoskeletal: see HPI Skin: see HPI Psychiatric/Neurological: No Symptoms Reported Past Meyknwr-Tutedi-Poymjv Hx Past Med/Social Hx: Reviewed Nursing Past Med/Soc Hx Patient Social History Alcohol Use: Rarely Uses Number of Drinks Today: 8 Alcohol Beverage of Choice: Beer Drug of Choice: METH, COCAINE, THC, OTHERS, IN PAST Smoking Status: Current Everyday Smoker Type Used: Cigarettes 2nd Hand Smoke Exposure: Yes Recent Infectious Disease Expo: No Recent Hopitalizations: No Seasonal Allergies Seasonal Allergies: Yes Past Medical History Surgeries: Yes ( X 5; LEFT OOPHORECTOMY FOR ECTOPIC) Section, Oophorectomy, Orthopedic, Tubal Ligation Respiratory: Yes Chronic Bronchitis Cardiac: No Neurological: No 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 oz. 86.472732wm; 28.00 BMI Method:Stated General Appearance: WD/WN, no apparent distress HEENT: normal ENT inspection Neck: normal inspection Cardiovascular: regular rate, rhythm, no edema, no murmur Respiratory: lungs clear, normal breath sounds, no respiratory distress Extremities: other (There is bruising and swelling on the dorsum of the right hand, primarily on the ulnar aspect. There is swelling and tenderness on the right lateral malleolus. Foot is unremarkable. Dorsal pedal pulses present.) Neurologic/Psychiatric: boot repairer II-XII nml as tested, no motor/sensory deficits, alert, normal mood/affect, oriented x 3 Skin: normal color, warm/dry, ecchymosis Wol[place] Coma Score Best Eye Response: (4) Open Spontaneously Best Verbal Response: (5) Oriented Best Motor Response: (6) Obeys Commands Karen Total: 15 Progress/Results/Core Measures Results/Orders My Orders Orders - JOSE ELIAS PARADA MD Hand, Right, 3 Views (10/23/20 00:01) Ankle, Right, 3 Views (10/23/20 00:01) Hydrocodone/Apap 5/325 Tablet (Lortab 5 (10/23/20 00:45) Steplite (10/23/20 00:44) Crutches (10/23/20 00:44) Medications Given in ED Current Medications Medications Dose Ordered Sig/Shanae Route Start Time Stop Time Status Last Admin Dose Admin Acetaminophen/ Hydrocodone Bitart 1 ea ONCE ONCE PO 10/23/20 00:45 10/23/20 00:46 DC 10/23/20 00:52 1 EA Vital Signs/I&O 10/22/20 10/23/20 23:39 01:23 Temp 36.0 36.0 Pulse 70 69 Resp 17 18 B/P (MAP) 131/92 (105) 142/89 (105) Pulse Ox 99 98 O2 Delivery Room Air Room Air Blood Pressure Mean: 105 Progress Progress Note : Progress Note There was questionable acute avulsion fracture of the distal fibula. A boot was provided along with crutches. The injury over the hand appears to be a small hematoma. Diagnostic Imaging Diagonstic Imaging: Xray Plain Films/CT/US/NM/MRI: hand Comments No acute injuries were identified although right-handed x-rays. There were some lucencies noted in the ulna and radius of unknown etiology. Patient was advised to follow-up on the radiologist interpretation of these findings. Report is not yet available. Diagonstic Imaging: Xray Plain Films/CT/US/NM/MRI: ankle Comments X-rays of the right ankle were reviewed by me. Report not yet available. There appears to be old injury to the distal fibula with possible superimposed acute a vulsion fracture. Patient was advised to follow-up with official radiologist interpretation. Departure Impression Primary Impression: Fall on same level Qualified Codes: W18.30XA - Fall on same level, unspecified, initial encounter Additional Impressions: Right ankle injury Qualified Codes: S99.911A - Unspecified injury of right ankle, initial encounter Traumatic hematoma of right hand Qualified Codes: S60.221A - Contusion of right hand, initial encounter Disposition: HOME, SELF-CARE Condition: Improved Departure-Patient Inst. Decision time for Depature: 00:46 Referrals: NO,LOCAL PHYSICIAN (PCP) Primary Care Physician ADELFO DRIVER MD Patient Instructions: How to Use Crutches Add. Discharge Instructions: Please call tomorrow morning after 10:00 to review x-ray reports. There something areas of the bones of your arm of uncertain significance. The official radiologist's interpretation should be reviewed with you tomorrow. It is also uncertain if the fracture in your ankle is an old injury only or if there is an additional new injury. This should be clarified by the radiologist report. Use the boot as much as possible over the next 6 weeks. Light weightbearing on the right foot is acceptable but avoid full activity. Use the crutches as necessary to assist with walking. Avoid use of ibuprofen until you know if there are fractures in the ankle. Ibuprofen should not be used in the setting of acute pain control in fractures. You may use Tylenol (acetaminophen) up to 1000 mg every 6 hours as needed. Rest, elevation, 20-minute intervals of icing, and compressive wrapping should also help with pain and swelling. If it is determined that you have fractures or other bone abnormalities on the x-rays, please follow-up with Dr. Driver or the orthopedic surgeon of your choice. Please call if you have questions or concerns. Return to care if you have worsening symptoms. All discharge instructions reviewed with patient and/or family. Voiced understanding. Work/School Note: Work Release Form Date Seen in the Emergency Department: Oct 23, 2020 Return to Work: Oct 23, 2020 Other Restrictions Listed Below: Wear boot for 6 weeks if there is ankle fracture. Restrictions: Wear boot as needed if no ankle fracture is identified on x- rays. JOSE ELIAS PARADA MD Oct 23, 2020 00:51
[2020-10-23 01:23] VITALS: BP 142/89
--- NOTE | 2020-10-23 06:06 | Diagnostic Imaging Report ---
INDICATION: Right hand pain 3 views of the right hand show no fracture, dislocation or other acute abnormalities. IMPRESSION: Negative right hand Dictated by: Dictated on workstation # [id number]
--- NOTE | 2020-10-23 06:07 | Diagnostic Imaging Report ---
INDICATION: Right ankle pain. FINDINGS: 3 views of the right ankle show a small area of cortical avulsion off the tip of the distal fibula. This is of indeterminate age. There is no associated soft tissue swelling. IMPRESSION: Probable old avulsion fracture off of the tip of the lateral malleolus. Clinical correlation recommended. Dictated by: Dictated on workstation # [id number]
== END 2020-10-23 01:23 | disposition home or self-care (01) ==
LOC: EDUNIT# 23:31 → ER 23:33
DX: S60.221A Contusion of right hand, initial encounter (principal); S99.911A Unspecified injury of right ankle, initial encounter; F17.210 Nicotine dependence, cigarettes, uncomplicated; Z79.52 Long term (current) use of systemic steroids; Z88.1 Allergy status to other antibiotic agents; Z87.828 Personal history of other (healed) physical injury and trauma; W01.198A Fall on same level from slipping, tripping and stumbling with subsequent striking against other object, initial encounter; Y92.009 Unspecified place in unspecified non-institutional (private) residence as the place of occurrence of the external cause
CPT/HCPCS: 73130; 73610; 99282; L2114

== ENCOUNTER 2020-12-24 13:03 | Emergency (ER) | payer OTHER ==
[~2020-12-24] VITALS: Ht 177 cm; Wt 84.0 kg
[2020-12-24] MEDS ORDERED: PRD20T PO (13:23)
[2020-12-24] MEDS ORDERED: RT-ALBUINH IH (13:23)
[2020-12-24] MEDS ORDERED: CEFU250T80 PO (13:23)
--- NOTE | 2020-12-24 13:24 | ED Cough/URI ---
General Chief Complaint: Cough/Cold/Flu Symptoms Stated Complaint: SOB,BACK PAIN COUGH Nursing Triage Note: ARRIVED VIA AMB TO ROOM 10. STATES SHE HAS HAD A RATTLE IN HER LUNGS X6 MONTHS BUT IT HAS GOTTEN WORSE AND IS NOW HAVING SOME SOA WITH IT. Sepsis Screen: No Definite Risk Source: patient Exam Limitations: no limitations History of Present Illness Date Seen by Provider: December 24, 2020 Time Seen by Provider: 13:15 Initial Comments Productive cough for 6 months. She has been wheezing for a few weeks now. She has had both [place] vaccinations for Covid. She denies fevers or chills. No nausea no vomiting no body aches. She smokes 1 pack of cigarettes per day. Does not have any bronchodilators at home. Timing/Duration: constant Severity/Quality: moderate Associated Symptoms: cough, shortness of breath, wheezing Allergies and Home Medications Allergies Coded Allergies: amoxicillin (Unverified Allergy, Unknown, 10/23/20) Home Medications Albuterol Sulfate 1 Puff Puff, 2 PUFF IH Q4H PRN for WHEEZING 1 PUFF = 90 MCG Prescribed by: MARISOL BLANCAS on 12/24/20 1323 Cefuroxime Axetil 250 Mg Tablet, 250 MG PO BID Prescribed by: MARISOL BLANCAS on 12/24/20 1323 Hydrocodone Bit/Acetaminophen 1 Tab Tab, 1-2 EACH PO Q6H PRN for BREAKTHROUGH PAIN Prescribed by: KRISSY CASAS on 11/06/17 0145 Hydroxyzine Pamoate 50 Mg Capsule, 50 MG PO Q6H Prescribed by: AJ ESCOBAR on 02/09/18138 Methylprednisolone 4 Mg Tab.ds.pk, 4 MG PO UD Prescribed by: AJ ESCOBAR on 02/09/18138 Mometasone Furoate 15 Gm Cream..g., 0 TP TID Prescribed by: AJ ESCOBAR on 02/09/18138 Prednisone 20 Mg Tab, 40 MG PO DAILY Prescribed by: MARISOL BLANCAS on 12/24/20 1323 Patient Home Medication List Home Medication List Reviewed: Yes Review of Systems Review of Systems Constitutional: see HPI; No chills, No fever EENTM: see HPI Respiratory: see HPI, cough, wheezing Cardiovascular: no symptoms reported Genitourinary: no symptoms reported Musculoskeletal: no symptoms reported Skin: no symptoms reported Psychiatric/Neurological: No Symptoms Reported Hematologic/Lymphatic: No Symptoms Reported Past Awebmcz-Vjyifc-Vissnj Hx Patient Social History Alcohol Beverage of Choice: Beer Drug of Choice: METH, COCAINE, THC, OTHERS, IN PAST Type Used: Cigarettes 2nd Hand Smoke Exposure: Yes Recent Infectious Disease Expo: No Recent Hopitalizations: No Seasonal Allergies Seasonal Allergies: Yes Past Medical History Surgeries: Yes ( X 5; LEFT OOPHORECTOMY FOR ECTOPIC) Section, Oophorectomy, Orthopedic, Tubal Ligation Respiratory: Yes Chronic Bronchitis Cardiac: No Neurological: No 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 oz. 86.969630qj; 26.00 BMI Method:Stated General Appearance: WD/WN, no apparent distress, other (Alert and oriented no distress. Oxygen saturation after walking from the waiting room to room 10 without supplemental oxygen is 94 to 95%. At rest it goes up to 98%.) Eyes: Bilateral Eye Normal Inspection, Bilateral Eye PERRL Neck: non-tender, full range of motion Respiratory: no respiratory distress, no accessory muscle use, rhonchi, wheezing Cardiovascular: regular rate, rhythm, no murmur Gastrointestinal: normal bowel sounds, non tender Neurologic/Psychiatric: alert, normal mood/affect, oriented x 3 Skin: normal color, warm/dry Progress/Results/Core Measures Suspected Sepsis Recent Fever Within 48 Hours: No Infection Criteria Present: None New/Unexplained Altered Menta: No Sepsis Screen: No Definite Risk SIRS Temperature: Pulse: 72 Respiratory Rate: 16 Laboratory Tests 12/24/20 13:25: White Blood Count 6.6 Blood Pressure 166 /132 Mean: 143 Laboratory Tests 12/24/20 13:25: Creatinine 0.64, Platelet Count 264, Total Bilirubin 0.6 Results/Orders Lab Results Laboratory Tests Test 12/24/20 13:25 Range/Units White Blood Count 6.6 4.3-11.0 10^3/uL Red Blood Count 4.54 3.80-5.11 10^6/uL Hemoglobin 14.1 11.5-16.0 g/dL Hematocrit 42 35-52 % Mean Corpuscular Volume 91 80-99 fL Mean Corpuscular Hemoglobin 31 25-34 pg Mean Corpuscular Hemoglobin Concent 34 32-36 g/dL Red Cell Distribution Width 13.6 10.0-14.5 % Platelet Count 264 130-400 10^3/uL Mean Platelet Volume 11.5 9.0-12.2 fL Immature Granulocyte % (Auto) 0 % Neutrophils (%) (Auto) 68 42-75 % Lymphocytes (%) (Auto) 19 12-44 % Monocytes (%) (Auto) 9 0-12 % Eosinophils (%) (Auto) 2 0-10 % Basophils (%) (Auto) 2 0-10 % Neutrophils # (Auto) 4.5 1.8-7.8 10^3/uL Lymphocytes # (Auto) 1.3 1.0-4.0 10^3/uL Monocytes # (Auto) 0.6 0.0-1.0 10^3/uL Eosinophils # (Auto) 0.1 0.0-0.3 10^3/uL Basophils # (Auto) 0.1 0.0-0.1 10^3/uL Immature Granulocyte # (Auto) 0.0 0.0-0.1 10^3/uL D-Dimer 0.34 0.00-0.49 UG/ML Sodium Level 138 135-145 MMOL/L Potassium Level 4.2 3.6-5.0 MMOL/L Chloride Level 101 98-107 MMOL/L Carbon Dioxide Level 30 21-32 MMOL/L Anion Gap 7 5-14 MMOL/L Creatinine 0.64 0.60-1.30 MG/DL Estimat Glomerular Filtration Rate > 60 Glucose Level 95 70-105 MG/DL Calcium Level 9.0 8.5-10.1 MG/DL Corrected Calcium 9.1 8.5-10.1 MG/DL Total Bilirubin 0.6 0.1-1.0 MG/DL Alkaline Phosphatase 114 40-136 U/L C-Reactive Protein High Sensitivity 0.87 H 0.00-0.50 MG/DL Total Protein 7.6 6.4-8.2 GM/DL Albumin 3.9 3.2-4.5 GM/DL My Orders Orders - MARISOL BLANCAS APRN Cbc With Automated Diff (12/24/20 13:15) Comprehensive Metabolic Panel (12/24/20 13:15) BNP (12/24/20 13:15) Ed Iv/Invasive Line Start (12/24/20 13:15) Chest 1 View, Ap/Pa Only (12/24/20 13:15) Hs C Reactive Protein (12/24/20 13:15) Fibrin Degradation Products (12/24/20 13:15) Albuterol/Ipra Inhalation Soln (Duoneb I (12/24/20 13:30) Svn Small Volume Nebulizer (12/24/20 13:29) Medications Given in ED Current Medications Medications Dose Ordered Sig/Shanae Route Start Time Stop Time Status Last Admin Dose Admin Albuterol/ Ipratropium 3 ml ONCE ONCE INH 12/24/20 13:30 12/24/20 13:31 DC 12/24/20 13:46 3 ML Vital Signs/I&O 12/24/20 12/24/20 13:10 13:47 Temp 36.3 Pulse 72 Resp 16 B/P (MAP) 166/132 (143) Pulse Ox 96 97 O2 Delivery Room Air Room Air Capillary Refill : Less Than 3 Seconds Blood Pressure Mean: 143 Diagnostic Imaging Diagonstic Imaging: Xray Comments NAME: AJ [facility] REC#: [id number] PT STATUS: REG ER : 1965 PHYSICIAN: MARISOL BLANCAS APRN ADMIT DATE: 12/24/20/ER Draft Date of Exam:12/24/20 CHEST 1 VIEW, AP/PA ONLY INDICATION: Cough x6 months COMPARISON: 10/14/2016 FINDINGS: Single frontal view of the chest demonstrates normal heart size and pulmonary vascularity. The lungs are well aerated and clear. No large pleural effusion or pneumothorax is seen. The visualized osseous structures show no acute abnormalities. IMPRESSION: 1. No acute cardiopulmonary process. Dictated on workstation # [id number] Dict: 12/24/20 1347 Trans: 12/24/20 1348 [id number] Interpreted by: JERRI PEAÑ MD Electronically signed by: Departure Impression Primary Impression: COPD exacerbation Disposition: HOME, SELF-CARE Condition: Stable Departure-Patient Inst. Decision time for Depature: 13:22 Referrals: [facility] [place] ([place]/Family) Primary Care Physician Patient Instructions: COPD Exacerbation, Adult ED Add. Discharge Instructions: 1. Steroids and antibiotics and inhaler as directed. Follow-up with primary care next week. All discharge instructions reviewed with patient and/or family. Voiced understanding. Scripts Albuterol Sulfate (PROAIR HFA) 1 Puff Puff 2 PUFF IH Q4H PRN for WHEEZING, #1 PUFF 1 PUFF = 90 MCG Prov: MARISOL BLANCAS APRN 12/24/20 Prednisone (Prednisone) 20 Mg Tab 40 MG PO DAILY, #8 TAB 0 Refills Prov: MARISOL BLANCAS APRN 12/24/20 Cefuroxime Axetil (Cefuroxime) 250 Mg Tablet 250 MG PO BID, #10 TAB Prov: MARISOL BLANCAS APRN 12/24/20 MARISOL BLANCAS APRN December 24, 2020 13:24
[2020-12-24 13:36] LABS: BASOPHILS # (AUTO) 0.1 10^3/uL (0.0-0.1); BASOPHILS % (AUTO) 2 % (0-10); EOSINOPHILS # (AUTO) 0.1 10^3/uL (0.0-0.3); EOSINOPHILS % (AUTO) 2 % (0-10); HEMATOCRIT 42 % (35-52); HEMOGLOBIN 14.1 g/dL (11.5-16.0); LYMPHOCYTES # (AUTO) 1.3 10^3/uL (1.0-4.0); LYMPHOCYTES % (AUTO) 19 % (12-44); MEAN CORPUSCULAR HEMOGLOBIN 31 pg (25-34); MEAN CORPUSCULAR HGB CONC 34 g/dL (32-36); MEAN CORPUSCULAR VOLUME 91 fL (80-99); MEAN PLATELET VOLUME 11.5 fL (9.0-12.2); MONOCYTES # (AUTO) 0.6 10^3/uL (0.0-1.0); MONOCYTES % (AUTO) 9 % (0-12); NEUTROPHILS # (AUTO) 4.5 10^3/uL (1.8-7.8); NEUTROPHILS % (AUTO) 68 % (42-75); PLATELET COUNT 264 10^3/uL (130-400); WHITE BLOOD COUNT 6.6 10^3/uL (4.3-11.0)
[2020-12-24 13:45] LABS: ALBUMIN 3.9 GM/DL (3.2-4.5); CHLORIDE 101 MMOL/L (98-107); POTASSIUM 4.2 MMOL/L (3.6-5.0); SODIUM 138 MMOL/L (135-145)
[2020-12-24] MEDS: RT-ALBUTEROL/IPRATROPIUM 3 ML (DUONEB) VIAL INH ONE (13:46)
[2020-12-24 13:48] LABS: GLUCOSE 95 MG/DL (70-105); TOTAL PROTEIN 7.6 GM/DL (6.4-8.2)
[2020-12-24 13:49] LABS: CARBON DIOXIDE 30 MMOL/L (21-32)
--- NOTE | 2020-12-24 13:49 | Diagnostic Imaging Report ---
INDICATION: Cough x6 months COMPARISON: 10/14/2016 FINDINGS: Single frontal view of the chest demonstrates normal heart size and pulmonary vascularity. The lungs are well aerated and clear. No large pleural effusion or pneumothorax is seen. The visualized osseous structures show no acute abnormalities. IMPRESSION: 1. No acute cardiopulmonary process. Dictated by: Dictated on workstation # [id number]
[2020-12-24 13:50] LABS: BILIRUBIN,TOTAL 0.6 MG/DL (0.1-1.0)
[2020-12-24 13:51] LABS: ALKALINE PHOSPHATASE 114 U/L (40-136)
[2020-12-24 13:52] LABS: CREATININE SERUM 0.64 MG/DL (0.60-1.30); GFR ESTIMATED > 60
[2020-12-24 13:53] LABS: BUN/CREATININE RATIO 16
[2020-12-24 13:55] LABS: ALANINE AMINOTRANSFERASE 41 U/L (0-55)
[2020-12-24 14:16] LABS: ABG BASE EXCESS 0.1 MMOL/L (-2.5-2.5); ABG OXYGEN SATURATION 95 % (94-100); ABG PCO2 42 MMHG (35-45); ABG PH 7.39 (7.37-7.43); ABG PO2 75 MMHG (79-93); ALLENS TEST YES-POS; INSPIRED O2 ROOM AIR; PATIENT TEMP 98.2; VENTILATOR NO
[2020-12-24 14:20] VITALS: BP 144/96
== END 2020-12-24 14:20 | disposition home or self-care (01) ==
LOC: EDUNIT# 13:03 → ER 13:05
DX: J44.1 Chronic obstructive pulmonary disease with (acute) exacerbation (principal); F17.210 Nicotine dependence, cigarettes, uncomplicated; Z79.51 Long term (current) use of inhaled steroids; Z79.52 Long term (current) use of systemic steroids
CPT/HCPCS: 36415; 71045; 80053; 82805; 83880; 85025; 85379; 86141; 93005; 94640

== ENCOUNTER 2021-11-04 05:34 | Outpatient (CLI) | payer OTHER ==
[~2021-11-04] VITALS: Ht 172.7 cm; Wt 88.0 kg
[~2021-11-04 05:34] MED LIST changes: +CEFU250T80 PO; +RT-ALBUINH IH
[2021-11-08] MEDS ORDERED: CYCL5TAB PO (12:56)
[2021-11-08] MEDS ORDERED: OMEP40CA6 PO (12:56)
[2021-11-08] MEDS ORDERED: FLUT1DIS26 IH (12:56)
[2021-11-08] MEDS ORDERED: NAPR-1070 PO (12:56)
[2021-11-08] MEDS ORDERED: TIOT18CA2 IH (12:56)
== END 2021-11-08 13:48 | disposition home or self-care (01) ==
LOC: PREOP 05:34
PROVIDERS: ATTEND Surgery
DX: Z01.818 Encounter for other preprocedural examination (principal); Z12.11 Encounter for screening for malignant neoplasm of colon; R10.13 Epigastric pain

== ENCOUNTER 2021-11-16 08:17 | Day surgery (SDC) | payer OTHER ==
[~2021-11-16] VITALS: Ht 173 cm; Wt 88.0 kg
[~2021-11-16 08:17] MED LIST changes: +CYCL5TAB PO; +FLUT1DIS26 IH; +NAPR-1070 PO; +OMEP40CA6 PO; +TIOT18CA2 IH
[2021-11-16] MEDS ORDERED: LACTATED RINGERS 1,000 ML IV ONE (08:20)
--- NOTE | 2021-11-16 08:32 | Progress Note-Pre Operative ---
Pre-Operative Progress Note H&P Reviewed The H&P was reviewed, patient examined and no changes noted. Date Seen by Provider: Nov 16, 2021 Time Seen by Provider: 08:32 Date H&P Reviewed: Nov 16, 2021 Time H&P Reviewed: 08:32 Pre-Operative Diagnosis: Screening colonoscopy. Epigastric pain. ANGELICA KOTHARI DO Nov 16, 2021 08:32
[2021-11-16 08:35] VITALS: BP 140/82
[2021-11-16] MEDS ORDERED: LACTATED RINGERS 1,000 ML IV STA (08:40)
[2021-11-16] MEDS ORDERED: HURRICAINE EXT TUBE (BENZOCAINE) XX PRN (08:45)
[2021-11-16] MEDS ORDERED: PROPOFOL INJECTION 50 ML IV ONE (09:22)
[2021-11-16] MEDS ORDERED: MIDAZOLAM 2 MG/2 ML (VERSED) VIAL ONE (09:22)
[2021-11-16 10:00] VITALS: BP 114/62
[2021-11-16] MEDS ORDERED: SUCR1TAB36 PO (10:03)
--- NOTE | 2021-11-16 10:04 | Discharge Inst-Simple/Standard ---
Discharge Inst-Standard Discharge Medications New, Converted or Re-Newed RX: Transmitted to Pharmacy Patient Instructions/Follow Up Plan of Care/Instructions/FU: 2 weeks Irvin Activity as Tolerated: Yes Discharge Diet: Regular Diet (high fiber, ulcer diet) ANGELICA KOTHARI DO Nov 16, 2021 10:01
[2021-11-16 10:05] VITALS: BP 131/68
[2021-11-16 10:25] VITALS: BP 134/77
[2021-11-16 10:32] VITALS: BP 134/77
--- NOTE | 2021-11-16 14:38 | OPERATIVE REPORT ---
DATE OF SERVICE: 11/16/2021 PREOPERATIVE DIAGNOSES: Epigastric abdominal pain, screening colonoscopy. POSTOPERATIVE DIAGNOSES: Gastritis, small gastric ulcer, rectal polyp, diverticulosis. PROCEDURE: EGD with biopsies, colonoscopy with snare polypectomy x1. SURGEON: Angelica Bryan DO ANESTHESIA: Per SOFTWARE DEVELOPER INTERN. ESTIMATED BLOOD LOSS: None. COMPLICATIONS: None. INDICATIONS: The patient is a 55-year-old female needing screening colonoscopy and also having epigastric abdominal pain. She understands risks and benefits of procedure and wished to proceed. Consent was signed in the chart. DESCRIPTION OF PROCEDURE: The patient was taken to the endoscopy suite, placed in left lateral recumbent position. Timeout was performed. Scope was inserted in mouth, down the esophagus, stomach and into the duodenum without difficulty. There were no polyps, masses or ulcerations within the duodenum. Scope was slowly retracted back into the stomach where it was further insufflated. Biopsy of the antrum was obtained. Slight changes of gastritis present in the body still with evidence of gastritis, there was also a small ulcer. Biopsy of this area was obtained. Scope was continued to be retroflexed and noted to have a small hiatal hernia, no other pathology. Scope was returned to its normal position, slowly withdrawn to distal esophagus. No polyps, masses or ulcerations. Biopsy of GE junction was obtained. Scope was slowly retracted back until completely removed. Digital rectal exam was performed. No palpable polyps, masses or ulcerations. Scope was inserted in the rectum and advanced all the way to cecum with minimal difficulty. Prep was adequate with irrigation and suction. Scope was slowly retracted back. No polyps, masses or ulcerations in the cecum, ascending, transverse, descending colon and sigmoid colon. A small amount of diverticulosis present. Scope was continued to retract into the rectum where a snare polypectomy was performed on polyps and scope was continued to be retroflexed noting no other pathology. Scope was returned to its normal position, slowly withdrawn until completely removed. The patient tolerated procedure well without any complications. She was taken to recovery room in stable condition. RECOMMENDATIONS: The patient will be started on Carafate 1 gram four times a day. She will follow up on biopsies. We will need repeat colonoscopy in at least three years for reevaluation. Further recommendations pending results. Any change before that be seen at that time. High fiber diet due to diverticulosis. CC: [facility] -requested, unable to deliver. Job ID: [id number] DocumentID: [id number] Dictated Date: 11/16/2021 10:02:50 Opinion Polls Survey Worker Date: 11/16/2021 14:37:30 Dictated By: ANGELICA BRYAN DO
--- NOTE | 2021-11-16 14:41 | Anesthesia-General Post-Op ---
MAC Patient Condition Mental Status/LOC: Same as Preop Cardiovascular: Satisfactory Nausea/Vomiting: Absent Respiratory: Satisfactory Pain: Controlled Complications: Absent Post Op Complications Complications None Follow Up Care/Instructions Patient Instructions None needed. Anesthesiology Discharge Order Discharge Order Patient is doing well, no complaints, stable vital signs, no apparent adverse anesthesia problems. No complications reported per nursing. GHADA BERMAN CRNA Nov 16, 2021 14:41
== END 2021-11-16 10:32 | disposition home or self-care (01) ==
LOC: ENDO 08:17
PROVIDERS: ATTEND Surgery
DX: Z12.11 Encounter for screening for malignant neoplasm of colon (principal); D12.8 Benign neoplasm of rectum; K29.50 Unspecified chronic gastritis without bleeding; B96.81 Helicobacter pylori [H. pylori] as the cause of diseases classified elsewhere; K21.00 Gastro-esophageal reflux disease with esophagitis, without bleeding; K25.9 Gastric ulcer, unspecified as acute or chronic, without hemorrhage or perforation; K57.30 Diverticulosis of large intestine without perforation or abscess without bleeding; K44.9 Diaphragmatic hernia without obstruction or gangrene; F17.210 Nicotine dependence, cigarettes, uncomplicated; Z79.52 Long term (current) use of systemic steroids; Z79.899 Other long term (current) drug therapy
CPT/HCPCS: 88305; 88342